=== PATIENT | female | born 1995 | race Caucasian/White ===

== ENCOUNTER 2021-08-19 11:09 | Day surgery (SDC) | payer OTHER ==
[2021-08-18 10:19] VITALS: BMI 35.5
[2021-08-19] MEDS ORDERED: Lidocaine 1% MPF 2 ML VIAL ONE (12:03)
[2021-08-19] MEDS ORDERED: Bupivacaine PF 0.5% 30 ML VIAL ONE (12:54)
[2021-08-19] MEDS ORDERED: Midazolam HCl 2 mg/2 ml Vial ONE (12:54)
[2021-08-19] MEDS ORDERED: PROPOFOL 20 ML ONE (12:54)
[2021-08-19] MEDS ORDERED: EPINEPHrine 1 MG/ML AMP ONE (12:54)
[2021-08-19] MEDS ORDERED: Dexamethasone 4 mg/ml Vial ONE (12:54)
[2021-08-19] MEDS ORDERED: Lidocaine 1% PF 5 ML VIAL ONE (12:54)
[2021-08-19] MEDS ORDERED: Fentanyl 100 MCG/2 ML VIAL ONE ×2 (12:54→14:11)
[2021-08-19] MEDS ORDERED: Ondansetron PF 4 MG/2 ML Vial ONE (12:54)
[2021-08-19] MEDS ORDERED: Rocuronium Bromide 10 MG/ML (10ML VIAL) ONE (12:54)
[2021-08-19] MEDS ORDERED: ceFAZolin 2 GM/DEX 5% 100 ML BAG ONE (13:05)
[2021-08-19] MEDS ORDERED: Ketorolac Tromethamine 30 MG/ML VIAL ONE (14:03)
[2021-08-19] MEDS ORDERED: Glycopyrrolate 0.2 MG/ML 5 ML SYRINGE ONE (14:03)
== END 2021-08-19 16:25 | disposition home or self-care (01) ==
LOC: CSHSDC 11:09
PROVIDERS: ATTEND Surgery
PROC: 0FT44ZZ Resection of Gallbladder, Percutaneous Endoscopic Approach (ICD-10-PCS; principal; 2021-08-19)
DX: K80.10 Calculus of gallbladder with chronic cholecystitis without obstruction (principal); E66.9 Obesity, unspecified; Z68.35 Body mass index [BMI] 35.0-35.9, adult
CPT/HCPCS: 88304; 94640; J0171; J1100; J1885; J2250; J2405; J2704; J3010; J7620; S0020